=== PATIENT | male | born 1935 | race Caucasian/White ===

== ENCOUNTER 2017-06-09 10:33 | Outpatient (CLI) | payer MEDICARE, OTHER ==
--- NOTE | 2017-06-09 12:02 | RAD ---
PA AND LATERAL VIEWS OF THE CHEST: HISTORY: Dyspnea. COMPARISON: 06/09/2016 FINDINGS: Changes of COPD, bibasilar atelectasis versus scarring, and postop changes in the lower cervical spin e are again seen. The heart size is borderline but stable. The aorta is tortuous. No lobar consoli dation, pneumothoraces, or pleural effusions are seen. There are degenerative changes in the spine. IMPRESSION: Stable exam. POS: [facility]
== END 2017-06-09 10:34 | disposition home or self-care (01) ==
LOC: RAD 10:33
PROVIDERS: ATTEND Internal Medicine Critical Care Medicine
DX: R06.00 Dyspnea, unspecified (principal)
CPT/HCPCS: 71046

== ENCOUNTER 2017-06-10 10:42 | Outpatient (CLI) | payer MEDICARE, OTHER ==
[2017-06-10] MEDS ORDERED: Iopamidol 370 76% 100 ML VIAL ONE (16:54)
== END 2017-06-10 10:43 | disposition home or self-care (01) ==
LOC: BICCT 10:42
PROVIDERS: ATTEND Internal Medicine Gastroenterology
DX: K57.30 Diverticulosis of large intestine without perforation or abscess without bleeding (principal); R10.9 Unspecified abdominal pain; R19.4 Change in bowel habit; N28.1 Cyst of kidney, acquired; K44.9 Diaphragmatic hernia without obstruction or gangrene; Z86.010 Personal history of colon polyps
CPT/HCPCS: 74177

== ENCOUNTER 2018-04-12 11:18 | Outpatient (CLI) | payer MEDICARE, OTHER ==
[2018-04-12 13:10] LABS: Anion Gap 13 mmol/L (10-20); BUN (Urea Nitrogen) 25 mg/dL (8.4-25.7); Calc. Creatinine Clearance 0 mL/min (70-130); Calcium 9.5 mg/dL (7.8-10.44); Carbon Dioxide 25 mmol/L (23-31); Chloride 103 mmol/L (98-107); Estimated GFR-MDRD 57; Glucose 106 mg/dL (83-110); Potassium 3.9 mmol/L (3.5-5.1); Sodium 137 mmol/L (136-145)
[2018-04-12 17:24] LABS: #Eosinphils 0.4 thou/uL (0.0-0.7); #Monocytes 0.5 thou/uL (0.11-0.59); #Neutrophils 3.8 thou/uL (1.40-6.50); %Basophils 0.8 % (0.0-1.0); %Eosinophils 6.6 % (0.0-10.0); %Lymphocytes 17.1 % (21.0-51.0); %Monocytes 8.7 % (0.0-10.0); %Neutrophils 66.7 % (42.0-75.0); Hemoglobin 12.6 g/dL (14.0-18.0); Mean Corpuscular HGB CONC 33.5 g/dL (32.0-36.0); Mean Corpuscular Hemoglobin 32.8 pg (27.0-31.0); Mean Platelet Volume 7.7 fL (7.4-10.4); Platelet Count 242 thou/uL (130-400); RBC Distribution Width 11.7 % (11.5-14.5); Red Blood Cell (RBC) Count 3.84 mill/uL (4.70-6.10); White Blood Cell (WBC) Count 5.7 thou/uL (4.8-10.8)
== END 2018-04-12 11:19 | disposition home or self-care (01) ==
LOC: LABBT 11:18
PROVIDERS: ATTEND Orthopaedic Surgery Hand Surgery
DX: Z01.818 Encounter for other preprocedural examination (principal); G56.02 Carpal tunnel syndrome, left upper limb
CPT/HCPCS: 80048; 85025; 85652; 93005; 93010

== ENCOUNTER 2018-04-23 07:24 | Day surgery (SDC) | payer MEDICARE, OTHER ==
[2018-04-12 11:41] VITALS: BMI 24.7
[~2018-04-23 07:24] MED LIST: Propofol 500 MG/50 ML VIAL ONE
[2018-04-23] MEDS ORDERED: CEFAZOLIN 2 GM/50 ML BAG ONE (08:17)
[2018-04-23] MEDS ORDERED: Midazolam HCl 2 mg/2 ml Vial ONE (09:12)
[2018-04-23] MEDS ORDERED: Fentanyl 100 MCG/2 ML VIAL ONE (09:12)
[2018-04-23] MEDS ORDERED: Bupivacaine PF 0.5% 30 ML VIAL ONE (09:17)
[2018-04-23] MEDS ORDERED: Betamet Acet/Betamet Na Ph 30 MG/5 ML VIAL ONE (09:17)
[2018-04-23] MEDS ORDERED: Bacitracin Zinc Ointment 30 gm TUBE ONE (09:17)
[2018-04-23] MEDS ORDERED: Dexamethasone 20 MG/5 ML VIAL ONE (20:45)
[2018-04-23] MEDS ORDERED: Ondansetron PF 4 MG/2 ML Vial ONE (20:45)
[2018-04-23] MEDS ORDERED: Ketorolac Tromethamine 30 MG/ML VIAL ONE (20:45)
[2018-04-23] MEDS ORDERED: Lidocaine 1% PF 5 ML VIAL ONE (20:45)
--- NOTE | 2018-04-25 01:27 | OP ---
DATE OF PROCEDURE: 04/23/2018 PREOPERATIVE DIAGNOSIS: Left carpal tunnel syndrome. POSTOPERATIVE DIAGNOSIS: Left carpal tunnel syndrome. FINDINGS: Very tight transverse carpal ligament especially in the mid distal third over the median nerve. COMPLICATIONS: None. TOURNIQUET TIME: 17 minutes. ESTIMATED BLOOD LOSS: 10 mL. ANESTHESIA: Conscious sedation with propofol and 20 mL of 0.5% Marcaine block, 15 given before the procedure, 5 after . DESCRIPTION OF PROCEDURE: After successful anesthesia listed above, and after we removed the patient's ring before we prepped and draped, the limb was prepped and draped. The ring was given to the patient's personally by me in the waiting area. The patient then had the limb exsanguinated after a time-out was done and the anesthetic was allowed to become active with no complications. Tourniquet to 250 mmHg pressure. We then made outlined a 2.5 cm medial incision beginning 5 mm distal to the volar wrist flexion crease and in line with the palmaris longus tendon. We carried the incision through skin, subcutaneous tissue, and to identify transverse carpal ligament, entering it just ulnar to the palmaris longus. We then dissected from the midportion distally using a combination of [place] blade and tenotomy scissors. We released the ligament and there was no evidence of mass. We then dissected the subcutaneous tissue to separate from transcarpal ligament and using a combination of self retaining elevated the skin, so we had direct visualization of the entire remaining portion of the transverse carpal ligament, released it using again a combination of [place] blade and tenotomy scissors. We deflated the tourniquet and obtained hemostasis. We then put 3 mL Celestone over the median nerve area, where there was no allograft formation, but early stippling was seen. There was not an increased amount of tenosynovitis on the flexor tendons. Once hemostasis obtained, we then closed the skin with interrupted 4-0 nylon mattress pattern. Bulky dressing was applied. Job ID: [id number]
--- NOTE | 2018-04-25 01:27 | OP ---
DATE OF PROCEDURE: 04/23/2018 ANESTHESIA: general via conscious sedation augmented by 20 mL of 0.5% Marcaine block at previous incision. PREOPERATIVE DIAGNOSIS: Left carpal tunnel syndrome. POSTOPERATIVE DIAGNOSIS: Left carpal tunnel syndrome. FINDINGS: Very tight transcarpal ligament with early stippling, no allograft formation, median nerve. PROCEDURE PERFORMED: Left carpal tunnel release. SPECIMEN: None. TOURNIQUET TIME: 17 minutes. ESTIMATED BLOOD LOSS: 10 mL. INJECTABLE: With Marcaine listed above as well as Celestone drip over the nerve 3 mL. INDICATIONS FOR PROCEDURE: Failed conservative treatment with EMG and clinical findings consistent with carpal tunnel syndrome. DESCRIPTION OF PROCEDURE: After given the medication, and removing the ring on the patient and given the ring by Dr. Ramos directly to his , the limb was prepped and draped and the time-out was completed. We then exsanguinated the limb, inflated tourniquet to 250 mmHg pressure, outlined a 2.5-cm mini carpal tunnel incision beginning distal to the volar wrist flexion crease by 5-mm and Piper's cardinal line in line with the palmaris longus tendon, ulnar aspect. We carried incision through skin, subcutaneous tissue, identified the transcarpal ligament. We then retracted distally with a self-retaining , exposed the transcarpal ligament and from its midportion, distal release done under direct visualization using a combination of [place] blade, tenotomy scissors. There was no excessive tenosynovitis of flexor tendons. We then , freed the skin and subcutaneous tissue from the transcarpal ligament. I used the direct visualization to visualize transcarpal ligament and released it from the midportion proximally using the same combination of instruments. We placed Celestone over the stippling without allograft formation and there was no excessive tenosynovitis. The tourniquet was deflated. Hemostasis was obtained. We closed the incision with interrupted 4-0 nylon in a mattress pattern after placing 3 mL of Celestone on the nerve. Bulky dressing was applied, soft only. The patient left the operating room without evidence of anesthetic or operative complication. Job ID: [id number]
== END 2018-04-23 12:15 | disposition home or self-care (01) ==
LOC: SDC 07:24
PROVIDERS: ATTEND Orthopaedic Surgery Hand Surgery
PROC: 01N50ZZ Release Median Nerve, Open Approach (ICD-10-PCS; principal; 2018-04-23)
DX: G56.02 Carpal tunnel syndrome, left upper limb (principal); I10 Essential (primary) hypertension; J45.909 Unspecified asthma, uncomplicated; M19.039 Primary osteoarthritis, unspecified wrist; Z98.52 Vasectomy status; Z79.82 Long term (current) use of aspirin; Z79.899 Other long term (current) drug therapy; Z98.890 Other specified postprocedural states
CPT/HCPCS: J0131; J0702; J1100; J1885; J2001; J2250; J2405; J2704; J3010; S0020

== ENCOUNTER 2018-07-27 09:24 | Outpatient (CLI) | payer MEDICARE, BC ==
--- NOTE | 2018-07-27 09:42 | RAD ---
FExam: Chest 2 view HISTORY:Dyspnea Comparison: 06/09/2017 FINDINGS: Lungs: Hyperinflated. Patchy left basilar opacity and minimal right lateral basilar density present Cardiac silhouette:Stable Pulmonary vessels: Normal Pleural Spaces: Clear Pneumothorax: None Osseous abnormalities: Surgical changes of the lower cervical spine IMPRESSION: COPD Bibasilar densities, left greater than right, which could relate to atelectasis, scar or pneumonitis.
== END 2018-07-27 09:25 | disposition home or self-care (01) ==
LOC: RAD 09:24
PROVIDERS: ATTEND Internal Medicine Critical Care Medicine
DX: R06.00 Dyspnea, unspecified (principal); J44.9 Chronic obstructive pulmonary disease, unspecified
CPT/HCPCS: 71046

== ENCOUNTER 2018-08-05 14:26 | Outpatient (CLI) | payer MEDICARE, BC ==
--- NOTE | 2018-08-05 16:37 | CT ---
CT Abdomen Pelvis W Con: 08/05/2018 12:00 AM CLINICAL INFORMATION: Central abdominal pain. History of diverticular disease. History of prostate ca ncer. COMPARISON: 06/10/2017 Procedure: Multiple contiguous axial images were obtained and a CT of the abdomen and pelvis with IV contrast.Or al contrast was administered. Coronal reformats were performed. FINDINGS: Lower Chest: within normal limits. Abdomen: Liver: within normal limits. Bile Ducts: Normal caliber. Gallbladder: No calcified gallstones. Normal caliber wall. Pancreas: within normal limits. Spleen: within normal limits. Adrenals: within normal limits. Kidneys: There are hypodensities in the right kidney measuring up to 4.7 cm in size which represents cysts. No abnormality seen in the left kidney. Pelvis: Reproductive Organs: Brachytherapy seeds are seen within the prostate. Ureters: within normal limits. Bladder: within normal limits. Peritoneum: No ascites or free air, no fluid collection. Bowel: Normal caliber. The appendix is normal. Scattered diverticula are seen in the colon. Mesentery and Retroperitoneum: No enlarged mesenteric or retroperitoneal lymph nodes. Vessels: Atherosclerotic calcifications. Abdominal Wall: within normal limits. Bones: Degenerative changes are seen in the spine. IMPRESSION: 1. No evidence of acute intraabdominal\pelvic abnormality. 2. Right renal cysts 3. Diverticulosis without evidence of acute diverticulitis
== END 2018-08-05 14:27 | disposition home or self-care (01) ==
LOC: BICCT 14:26
PROVIDERS: ATTEND Internal Medicine Gastroenterology
DX: K57.30 Diverticulosis of large intestine without perforation or abscess without bleeding (principal); R10.33 Periumbilical pain; N28.1 Cyst of kidney, acquired
CPT/HCPCS: 74177

== ENCOUNTER 2019-07-15 12:20 | Outpatient (CLI) | payer MEDICARE, BC ==
--- NOTE | 2019-07-15 15:34 | NM ---
HEPATOBILIARY SCAN: HISTORY: Chronic abdominal pain. RADIOPHARMACEUTICAL: 5.3 mCi technetium 99m-mebrofenin injected intravenously. FINDINGS: There is good tracer extraction by the liver with prompt excretion into the biliary tract and small b owel loops and filling of the gallbladder. The calculated gallbladder ejection fraction following an oral fatty meal measures 28%. IMPRESSION: Chronic cholecystitis/gallbladder dyskinesia. POS: [facility]
== END 2019-07-15 12:21 | disposition home or self-care (01) ==
LOC: NM 12:20
PROVIDERS: ATTEND Internal Medicine Gastroenterology
DX: R10.9 Unspecified abdominal pain (principal); G89.29 Other chronic pain
CPT/HCPCS: 78227; A9537

== ENCOUNTER 2019-09-08 07:58 | Outpatient (CLI) | payer MEDICARE, BC ==
--- NOTE | 2019-09-08 09:24 | ULT ---
GALLBLADDER ULTRASOUND: HISTORY: Abdominal pain. FINDINGS: Real-time imaging of the right upper quadrant was performed. These showed some small echogenic densi ties along the gallbladder wall which do not show any shadowing. One of these shows some ring down a rtifact. These probably represent small polyps and may be indication of adenomyomatosis. No gallsto courtney. The common duct is in the 5-6 mm range. The visualized liver parenchyma shows no focal finding s. The pancreas is partially obscured. Multiple cysts are seen in the lower pole regio of the right kidney. There is a cluster of cysts or 1 cyst with some thin internal septations associated with it. A second cyst which appears to be miguel cent to this one is the largest. It measures in the 4.5 cm range. IMPRESSION: 1. Small polyps within the gallbladder measuring in the 2-3 mm range. No gallstones identified and no gallbladder wall thickening. 2. Multiple right renal cysts. This has been noted on previous CT studies. POS: [facility]
== END 2019-09-08 07:59 | disposition home or self-care (01) ==
LOC: BICULT 07:58
PROVIDERS: ATTEND Specialist
DX: R10.13 Epigastric pain (principal); K82.4 Cholesterolosis of gallbladder; N28.1 Cyst of kidney, acquired
CPT/HCPCS: 76705

== ENCOUNTER 2020-09-06 08:53 | Outpatient (CLI) | payer MEDICARE, BC | END 2020-09-06 08:54 | disposition home or self-care (01) | LOC: BICRAD 08:53 | PROVIDERS: ATTEND Internal Medicine Critical Care Medicine | DX: R06.00 Dyspnea, unspecified (principal) | CPT/HCPCS: 71046 ==

== ENCOUNTER 2021-09-24 09:40 | Outpatient (CLI) | payer MEDICARE, BC | END 2021-09-24 09:41 | disposition home or self-care (01) | LOC: RAD 09:40 | PROVIDERS: ATTEND Internal Medicine Critical Care Medicine | DX: R06.00 Dyspnea, unspecified (principal); J98.11 Atelectasis; R91.8 Other nonspecific abnormal finding of lung field | CPT/HCPCS: 71046 ==

== ENCOUNTER 2022-03-06 08:59 | Outpatient (CLI) | payer MEDICARE, BC | END 2022-03-06 09:00 | disposition home or self-care (01) | LOC: RAD 08:59 | PROVIDERS: ATTEND Internal Medicine Critical Care Medicine | DX: R06.00 Dyspnea, unspecified (principal) | CPT/HCPCS: 71046 ==

== ENCOUNTER 2022-04-29 01:05 | Inpatient (IN) | payer MEDICARE, BC ==
[2022-04-29 02:30] VITALS: BMI 22.0
[2022-04-29] MEDS ORDERED: Ondansetron PF 4 MG/2 ML Vial IVP PRN (06:16)
[2022-04-29] MEDS ORDERED: Acetaminophen 650 MG Suppository PR PRN (06:16)
[2022-04-29] MEDS ORDERED: Ondansetron ODT 4 MG TAB PO PRN (06:16)
[2022-04-29 07:35] LABS: Iron 20 ug/dL (65-175); Iron Binding Capacity, Total 178 mcg/dL (261-462)
[2022-04-29 07:36] LABS: Troponin I 0.149 ng/mL (< 0.028)
[2022-04-29 10:22] LABS: Hemoglobin 8.6 g/dL (14.0-18.0); Mean Corpuscular HGB CONC 33.7 g/dL (32.0-36.0); Mean Corpuscular Hemoglobin 33.6 pg (27.0-31.0); Mean Corpuscular Volume 99.8 fl (78.0-98.0); Mean Platelet Volume 9.3 fL (7.4-10.4); Platelet Count 237 10x3/uL (130-400); RBC Distribution Width 12.5 % (11.5-14.5); Red Blood Cell (RBC) Count 2.55 mill/uL (4.70-6.10); White Blood Cell (WBC) Count 8.1 10x3/uL (4.8-10.8)
[2022-04-29] MEDS: Pantoprazole 40 MG VIAL IVP SCH ×2 (10:27→20:54)
[2022-04-29] MEDS: Sodium Chloride 0.9% 1,000 ML IV SCH (17:15)
[2022-04-29] MEDS: Mometasone 200 MCG/Formoterol 5 MCG 120 PUFF INHALER INH SCH (18:52)
[2022-04-29] MEDS: Tamsulosin HCl 0.4 MG CAP PO SCH (20:54)
[2022-04-29] MEDS: Simvastatin 10 MG TAB PO SCH (20:54)
[2022-04-30] MEDS: Sodium Chloride 0.9% 1,000 ML IV SCH ×2 (06:35→18:01)
[2022-04-30] MEDS: Mometasone 200 MCG/Formoterol 5 MCG 120 PUFF INHALER INH SCH ×2 (07:14→17:48)
[2022-04-30 07:26] LABS: #Eosinphils 0.2 thou/uL (0.0-0.7); #Lymphocytes 0.7 thou/uL (1.20-3.40); #Monocytes 0.7 thou/uL (0.11-0.59); #Neutrophils 6.4 thou/uL (1.40-6.50); %Eosinophils 2.1 % (0.0-10.0); %Lymphocytes 9.3 % (21.0-51.0); %Monocytes 8.3 % (0.0-10.0); %Neutrophils 80.3 % (42.0-75.0); Hemoglobin 8.5 g/dL (14.0-18.0); Mean Corpuscular HGB CONC 33.5 g/dL (32.0-36.0); Mean Corpuscular Hemoglobin 33.6 pg (27.0-31.0); Mean Platelet Volume 8.8 fL (7.4-10.4); Platelet Count 249 10x3/uL (130-400); RBC Distribution Width 12.6 % (11.5-14.5); Red Blood Cell (RBC) Count 2.53 mill/uL (4.70-6.10)
[2022-04-30 07:55] LABS: Anion Gap 11 mmol/L (10-20); BUN (Urea Nitrogen) 15 mg/dL (8.4-25.7); Calc. Creatinine Clearance 48 mL/min (70-130); Calcium 8.2 mg/dL (7.8-10.44); Carbon Dioxide 19 mmol/L (23-31); Chloride 105 mmol/L (98-107); Estimated GFR 54; Glucose 96 mg/dL (83-110); Potassium 3.8 mmol/L (3.5-5.1); Sodium 131 mmol/L (136-145)
[2022-04-30] MEDS ORDERED: Non-Formulary Item 1 EACH (Nifedipine [Nifedipine Er] 30 MG Tablet.Er) PO SCH (09:00)
[2022-04-30] MEDS ORDERED: Non-Formulary Item 1 EACH (Symbicort 2 PUFF) INH SCH (09:00)
[2022-04-30] MEDS ORDERED: Lidocaine 1% PF 5 ML VIAL ONE (09:05)
[2022-04-30] MEDS ORDERED: PROPOFOL 200 MG/20 ML VIAL ONE (09:05)
[2022-04-30] MEDS: Pantoprazole 40 MG VIAL IVP SCH (10:13)
[2022-04-30] MEDS: Aspirin 81 mg Enteric Coated Tablet PO SCH (10:16)
[2022-04-30] MEDS: NIFEdipine XL 30 MG TAB PO SCH (10:16)
[2022-04-30] MEDS ORDERED: GoLYTELY 4,000 ml Bottle PO SCH (17:00)
[2022-04-30] MEDS: Simvastatin 10 MG TAB PO SCH (19:45)
[2022-04-30] MEDS: Tamsulosin HCl 0.4 MG CAP PO SCH (19:45)
[2022-05-01 06:32] LABS: Hemoglobin 7.5 g/dL (14.0-18.0); Mean Corpuscular Hemoglobin 34.7 pg (27.0-31.0); Mean Corpuscular Volume 99.1 fl (78.0-98.0); Mean Platelet Volume 8.6 fL (7.4-10.4); Platelet Count 232 10x3/uL (130-400); RBC Distribution Width 12.2 % (11.5-14.5); Red Blood Cell (RBC) Count 2.17 mill/uL (4.70-6.10); White Blood Cell (WBC) Count 7.4 10x3/uL (4.8-10.8)
[2022-05-01] MEDS: Mometasone 200 MCG/Formoterol 5 MCG 120 PUFF INHALER INH SCH ×2 (07:20→18:33)
[2022-05-01] MEDS: Aspirin 81 mg Enteric Coated Tablet PO SCH (08:55)
[2022-05-01] MEDS: NIFEdipine XL 30 MG TAB PO SCH (08:55)
[2022-05-01] MEDS: Sodium Chloride 0.9% 1,000 ML IV SCH ×2 (08:56→20:33)
[2022-05-01] MEDS ORDERED: ePHEDrine 50 MG/ML VIAL ONE (11:56)
[2022-05-01] MEDS ORDERED: PROPOFOL 200 MG/20 ML VIAL ONE (11:56)
[2022-05-01] MEDS: Tamsulosin HCl 0.4 MG CAP PO SCH (20:24)
[2022-05-01] MEDS: Simvastatin 10 MG TAB PO SCH (20:24)
[2022-05-02] MEDS ORDERED: Benzonatate 100 MG CAP PO PRN (00:08)
[2022-05-02] MEDS: GUAIFENESIN SF SOLN 200 MG/10 ML UDCUP PO PRN ×2 (00:31→16:40)
[2022-05-02] MEDS: Acetaminophen 325 MG TAB PO PRN (04:07)
[2022-05-02] MEDS ORDERED: Ipratropium/Albuterol 3 ML NEB NEB SCH (04:30)
[2022-05-02 05:48] LABS: #Eosinphils 0.1 thou/uL (0.0-0.7); #Lymphocytes 0.6 thou/uL (1.20-3.40); #Monocytes 0.7 thou/uL (0.11-0.59); #Neutrophils 8.1 thou/uL (1.40-6.50); %Basophils 0.2 % (0.0-1.0); %Eosinophils 1.2 % (0.0-10.0); %Lymphocytes 6.6 % (21.0-51.0); %Monocytes 6.9 % (0.0-10.0); %Neutrophils 85.1 % (42.0-75.0); Hemoglobin 8.6 g/dL (14.0-18.0); Mean Corpuscular HGB CONC 32.9 g/dL (32.0-36.0); Mean Corpuscular Hemoglobin 32.4 pg (27.0-31.0); Mean Corpuscular Volume 98.4 fl (78.0-98.0); Mean Platelet Volume 9.1 fL (7.4-10.4); Platelet Count 226 10x3/uL (130-400); RBC Distribution Width 13.4 % (11.5-14.5); Red Blood Cell (RBC) Count 2.67 mill/uL (4.70-6.10); White Blood Cell (WBC) Count 9.5 10x3/uL (4.8-10.8)
[2022-05-02 05:49] LABS: SARS-CoV-2 NAA Rapid Test Not Detected (NotDetected)
[2022-05-02 06:04] LABS: Lactic Acid 0.7 mmol/L (0.5-2.2)
[2022-05-02 06:07] LABS: Anion Gap 11 mmol/L (10-20); BUN (Urea Nitrogen) 14 mg/dL (8.4-25.7); Calc. Creatinine Clearance 47 mL/min (70-130); Calcium 7.8 mg/dL (7.8-10.44); Carbon Dioxide 18 mmol/L (23-31); Chloride 105 mmol/L (98-107); Estimated GFR 53; Glucose 113 mg/dL (83-110); Potassium 3.5 mmol/L (3.5-5.1); Sodium 130 mmol/L (136-145)
[2022-05-02] MEDS: Mometasone 200 MCG/Formoterol 5 MCG 120 PUFF INHALER INH SCH ×2 (07:16→18:38)
[2022-05-02] MEDS: Aspirin 81 mg Enteric Coated Tablet PO SCH (08:19)
[2022-05-02] MEDS: NIFEdipine XL 30 MG TAB PO SCH (08:19)
[2022-05-02] MEDS ORDERED: Amoxicillin/Potassium Clav 875 MG TAB PO SCH (11:15)
[2022-05-02] MEDS: Sodium Chloride 0.9% 1,000 ML IV SCH (12:28)
[2022-05-02] MEDS ORDERED: Piperacillin/Tazobactam 4.5 GM in Sodium Chloride 0.9% 100 ML IVPB SCH (14:00)
[2022-05-02] MEDS ORDERED: Piperacillin/Tazobactam 3.375 GM in Sodium Chloride 0.9% 100 ML IVPB SCH (14:00)
[2022-05-02] MEDS: Piperacillin/Tazobactam 3.375 GM in Sodium Chloride 0.9% 100 ML IVPB SCH (21:07)
[2022-05-02] MEDS: Tamsulosin HCl 0.4 MG CAP PO SCH (21:07)
[2022-05-02] MEDS: Simvastatin 10 MG TAB PO SCH (21:07)
[2022-05-03] MEDS: Piperacillin/Tazobactam 3.375 GM in Sodium Chloride 0.9% 100 ML IVPB SCH ×3 (06:40→21:10)
[2022-05-03] MEDS: Mometasone 200 MCG/Formoterol 5 MCG 120 PUFF INHALER INH SCH ×2 (07:26→19:14)
[2022-05-03] MEDS: Aspirin 81 mg Enteric Coated Tablet PO SCH (08:39)
[2022-05-03] MEDS: Ferrous Sulfate 325 MG TAB PO SCH (08:39)
[2022-05-03] MEDS: NIFEdipine XL 30 MG TAB PO SCH (08:39)
[2022-05-03 10:41] LABS: #Eosinphils 0.2 thou/uL (0.0-0.7); #Lymphocytes 0.7 thou/uL (1.20-3.40); #Monocytes 0.4 thou/uL (0.11-0.59); #Neutrophils 4.3 thou/uL (1.40-6.50); %Basophils 0.3 % (0.0-1.0); %Eosinophils 2.9 % (0.0-10.0); %Monocytes 7.4 % (0.0-10.0); %Neutrophils 76.4 % (42.0-75.0); Hemoglobin 9.2 g/dL (14.0-18.0); Mean Corpuscular HGB CONC 33.2 g/dL (32.0-36.0); Mean Corpuscular Hemoglobin 32.7 pg (27.0-31.0); Mean Corpuscular Volume 98.5 fl (78.0-98.0); Mean Platelet Volume 9.1 fL (7.4-10.4); Platelet Count 234 10x3/uL (130-400); RBC Distribution Width 13.6 % (11.5-14.5); White Blood Cell (WBC) Count 5.7 10x3/uL (4.8-10.8)
[2022-05-03 10:51] LABS: Anion Gap 8 mmol/L (10-20); BUN (Urea Nitrogen) 17 mg/dL (8.4-25.7); Calc. Creatinine Clearance 49 mL/min (70-130); Calcium 8.3 mg/dL (7.8-10.44); Carbon Dioxide 20 mmol/L (23-31); Chloride 109 mmol/L (98-107); Estimated GFR 56; Glucose 149 mg/dL (83-110); Potassium 3.4 mmol/L (3.5-5.1); Sodium 134 mmol/L (136-145)
[2022-05-03] MEDS: Simvastatin 10 MG TAB PO SCH (20:11)
[2022-05-03] MEDS: Tamsulosin HCl 0.4 MG CAP PO SCH (20:11)
[2022-05-04] MEDS: Piperacillin/Tazobactam 3.375 GM in Sodium Chloride 0.9% 100 ML IVPB SCH ×3 (05:39→21:58)
[2022-05-04 07:38] LABS: #Eosinphils 0.4 thou/uL (0.0-0.7); #Lymphocytes 0.9 thou/uL (1.20-3.40); #Monocytes 0.4 thou/uL (0.11-0.59); #Neutrophils 3.7 thou/uL (1.40-6.50); %Basophils 0.6 % (0.0-1.0); %Eosinophils 7.7 % (0.0-10.0); %Lymphocytes 16.1 % (21.0-51.0); %Monocytes 7.1 % (0.0-10.0); %Neutrophils 68.5 % (42.0-75.0); Hemoglobin 9.3 g/dL (14.0-18.0); Mean Corpuscular HGB CONC 34.1 g/dL (32.0-36.0); Mean Corpuscular Hemoglobin 33.7 pg (27.0-31.0); Mean Corpuscular Volume 98.7 fl (78.0-98.0); Mean Platelet Volume 8.7 fL (7.4-10.4); Platelet Count 273 10x3/uL (130-400); RBC Distribution Width 13.5 % (11.5-14.5); Red Blood Cell (RBC) Count 2.77 mill/uL (4.70-6.10); White Blood Cell (WBC) Count 5.3 10x3/uL (4.8-10.8)
[2022-05-04 08:07] LABS: Anion Gap 11 mmol/L (10-20); BUN (Urea Nitrogen) 18 mg/dL (8.4-25.7); Calc. Creatinine Clearance 44 mL/min (70-130); Calcium 8.2 mg/dL (7.8-10.44); Carbon Dioxide 19 mmol/L (23-31); Chloride 109 mmol/L (98-107); Estimated GFR 49; Glucose 102 mg/dL (83-110); Potassium 3.8 mmol/L (3.5-5.1); Sodium 135 mmol/L (136-145)
[2022-05-04] MEDS: Mometasone 200 MCG/Formoterol 5 MCG 120 PUFF INHALER INH SCH ×2 (08:19→18:24)
[2022-05-04] MEDS: NIFEdipine XL 30 MG TAB PO SCH (08:54)
[2022-05-04] MEDS: Aspirin 81 mg Enteric Coated Tablet PO SCH (08:54)
[2022-05-04] MEDS: Ferrous Sulfate 325 MG TAB PO SCH (08:54)
[2022-05-04] MEDS: Simvastatin 10 MG TAB PO SCH (20:18)
[2022-05-04] MEDS: Tamsulosin HCl 0.4 MG CAP PO SCH (20:18)
[2022-05-05] MEDS: Acetaminophen 325 MG TAB PO PRN (01:02)
[2022-05-05] MEDS: Piperacillin/Tazobactam 3.375 GM in Sodium Chloride 0.9% 100 ML IVPB SCH (05:49)
[2022-05-05] MEDS: Mometasone 200 MCG/Formoterol 5 MCG 120 PUFF INHALER INH SCH (07:45)
[2022-05-05 08:18] VITALS: TEMP 97.5
[2022-05-05] MEDS: Ferrous Sulfate 325 MG TAB PO SCH (08:33)
[2022-05-05] MEDS: NIFEdipine XL 30 MG TAB PO SCH (08:34)
[2022-05-05] MEDS: Aspirin 81 mg Enteric Coated Tablet PO SCH (08:34)
[2022-05-05] MEDS ORDERED: Amoxicillin/Potassium Clav 875 MG TAB PO SCH (09:00)
[2022-05-05 11:28] VITALS: BP 136/48
== END 2022-05-05 11:47 | disposition home or self-care (01) | DRG 377 ==
LOC: T4-B 02:24
PROVIDERS: ADMIT Student in an Organized Health Care Education/Training Program; ATTEND Internal Medicine
PROC: 0DJ08ZZ Inspection of Upper Intestinal Tract, Via Natural or Artificial Opening Endoscopic (ICD-10-PCS; principal; 2022-04-30)
PROC: 0DBK8ZZ Excision of Ascending Colon, Via Natural or Artificial Opening Endoscopic (ICD-10-PCS; 2022-05-01)
PROC: 0DBL8ZZ Excision of Transverse Colon, Via Natural or Artificial Opening Endoscopic (ICD-10-PCS; 2022-05-01)
PROC: 0DBM8ZZ Excision of Descending Colon, Via Natural or Artificial Opening Endoscopic (ICD-10-PCS; 2022-05-01)
PROC: 30233N1 Transfusion of Nonautologous Red Blood Cells into Peripheral Vein, Percutaneous Approach (ICD-10-PCS; 2022-05-01)
DX: K92.1 Melena (principal); J69.0 Pneumonitis due to inhalation of food and vomit; D68.32 Hemorrhagic disorder due to extrinsic circulating anticoagulants; D62 Acute posthemorrhagic anemia; D12.2 Benign neoplasm of ascending colon; I10 Essential (primary) hypertension; E78.5 Hyperlipidemia, unspecified; N40.0 Benign prostatic hyperplasia without lower urinary tract symptoms; I51.7 Cardiomegaly; J44.9 Chronic obstructive pulmonary disease, unspecified; D63.8 Anemia in other chronic diseases classified elsewhere; I48.0 Paroxysmal atrial fibrillation; D12.3 Benign neoplasm of transverse colon; K57.30 Diverticulosis of large intestine without perforation or abscess without bleeding; T45.525A Adverse effect of antithrombotic drugs, initial encounter; D12.4 Benign neoplasm of descending colon; K44.9 Diaphragmatic hernia without obstruction or gangrene; Z20.822 Contact with and (suspected) exposure to COVID-19; Z79.899 Other long term (current) drug therapy; Z95.2 Presence of prosthetic heart valve; Z98.890 Other specified postprocedural states; Z98.1 Arthrodesis status; Z86.16 Personal history of COVID-19; Z79.82 Long term (current) use of aspirin
CPT/HCPCS: 36415; 36430; 71045; 80048; 82607; 82728; 83540; 83550; 83605; 84484; 85025; 85027; 86850; 86900; 86901; 88305; 94640; C9113; J2543; J2704; J3490; J7050; J7620; P9016; U0003; U0005

== ENCOUNTER 2022-12-16 09:03 | Outpatient (CLI) | payer MEDICARE, BC | END 2022-12-16 09:04 | disposition home or self-care (01) | LOC: RAD 09:03 | PROVIDERS: ATTEND Internal Medicine Critical Care Medicine | DX: R06.00 Dyspnea, unspecified (principal) | CPT/HCPCS: 71046 ==

== ENCOUNTER 2023-12-16 12:39 | Inpatient (IN) | payer MEDICARE ==
[~2023-12-16 12:39] MED LIST changes: +Iopamidol-370 76% 500 ML MDV (1 ML CHARGE) ONE; -Propofol 500 MG/50 ML VIAL ONE
[2023-12-16] MEDS ORDERED: niCARdipine 25 MG/10 ML SDV ONE (12:47)
[2023-12-16 13:10] LABS: #Basophils 0.03 10x3/uL (0.0-0.2); %Basophils 0.4 % (0.0-1.0); %Eosinophils 4.6 % (0.0-10.0); %Lymphocytes 7.7 % (21.0-51.0); %Monocytes 5.6 % (0.0-10.0); %Neutrophils 81.3 % (42.0-75.0); Hematocrit 35.7 % (42.0-52.0); Hemoglobin 11.9 g/dL (14.0-18.0); Mean Corpuscular HGB CONC 33.3 g/dL (32.0-36.0); Mean Corpuscular Hemoglobin 33.1 pg (27.0-31.0); Mean Corpuscular Volume 99.2 fL (78.0-98.0); Mean Platelet Volume 10.2 fL (7.4-10.4); Platelet Count 155 10x3/uL (130-400); RBC Distribution Width 13.4 % (11.5-14.5)
[2023-12-16] MEDS ORDERED: Fentanyl CADD 100 ML IV SCH (13:15)
[2023-12-16] MEDS ORDERED: niCARdipine 25 MG in Sodium Chloride 0.9% 250 ML 250 ML IVPB SCH (13:15)
[2023-12-16 13:20] LABS: Bacteria/HPF None Seen HPF (None Seen); Bilirubin Negative (Negative); Blood, Urine 2+ (Negative); CAUTI Indications for Culture Alt mental st,lethar; Clarity Clear (Clear); Glucose, Urine (Dipstick) Greater than 1000 mg/dL (Negative); Ketone, Urine Negative (Negative); Leukocyte Negative Leu/uL (Negative); Nitrite Negative (Negative); Protein, Urine (Dipstick) 100 mg/dL (Neg-Trace); RBC/HPF 0-3 HPF (0-3); Specific Gravity, Urine 1.018 (1.002-1.036); Squamous Epithelial None Seen HPF (0-3); Urobilinogen Normal mg/dL (Less than 2); WBC/HPF 0-3 HPF (0-3); pH, Urine 6.5 (5.0-9.0)
[2023-12-16 13:20] LABS: Actual Bicarbonate (HCO3a) 21.2 mEq/L (22-28); Analyzer IN Cardio ER; Base Excess (BEa) -3.4 mEq/L (-2.0 to +3.0); CO2 Tension 36.5 mmHg (35.0-45.0); Calcium, Ionized (arterial) 1.18 mmol/L (1.12-1.30); Carboxyhemoglobin (COHb) 0.5 gm% (0.0-3.0); Hematocrit-ABG 37 % (42.0-52.0); Hemoglobin (Hb) 12.5 g/dL (14.0-18.0); O2 Tension (PaO2), arterial 74.5 mmHg (> 60.0); Potassium - ABG Lab 4.01 mmol/L (3.70-5.30); pH, Arterial 7.381 (7.35-7.45)
[2023-12-16 13:22] LABS: INR-International Normal Ratio 1.2; Prothrombin Time 15.4 sec (12.0-14.7)
[2023-12-16 13:23] LABS: PTT 28.5 sec (22.9-36.1)
[2023-12-16 13:24] LABS: Urine Culture Reflex No No
[2023-12-16 13:34] LABS: ALT (SGPT) 13 U/L (8-55); AST (SGOT) 21 U/L (5-34); Albumin 3.3 g/dL (3.4-4.8); Alkaline Phosphatase 70 U/L (40-110); Anion Gap 11 mmol/L (10-20); BUN (Urea Nitrogen) 26 mg/dL (8.4-25.7); Bilirubin, Total 1.3 mg/dL (0.2-1.2); Calc. Creatinine Clearance 0 mL/min (70-130); Calcium 8.4 mg/dL (7.8-10.44); Carbon Dioxide 22 mmol/L (23-31); Chloride 110 mmol/L (98-107); Estimated GFR 50; Globulin 2.5 g/dL (2.4-3.5); Glucose 147 mg/dL (83-110); Potassium 4.1 mmol/L (3.5-5.1); Protein, Total 5.8 g/dL (5.8-8.1); Sodium 139 mmol/L (136-145); Troponin I 0.062 ng/mL (< 0.028)
[2023-12-16 13:49] LABS: ALV-art Gradient 165.075 mmHg (0-20); Puncture Site Right Radial artery
[2023-12-16 15:58] VITALS: BP 73/44
[2023-12-16 16:13] VITALS: TEMP 97.8
[2023-12-16 16:24] VITALS: BMI 28.5
== END 2023-12-16 19:08 | disposition hospice, inpatient (51) | DRG 64 ==
LOC: ERS 12:39 → CCU 12:55
PROVIDERS: ADMIT Internal Medicine; ATTEND Internal Medicine
PROC: 5A1935Z Respiratory Ventilation, Less than 24 Consecutive Hours (ICD-10-PCS; principal; 2023-12-16)
PROC: 0T9B70Z Drainage of Bladder with Drainage Device, Via Natural or Artificial Opening (ICD-10-PCS; 2023-12-16)
PROC: 0BH17EZ Insertion of Endotracheal Airway into Trachea, Via Natural or Artificial Opening (ICD-10-PCS; 2023-12-16)
PROC: 0D9670Z Drainage of Stomach with Drainage Device, Via Natural or Artificial Opening (ICD-10-PCS; 2023-12-16)
PROC: 3E0G76Z Introduction of Nutritional Substance into Upper GI, Via Natural or Artificial Opening (ICD-10-PCS; 2023-12-16)
PROC: 4A033R1 Measurement of Arterial Saturation, Peripheral, Percutaneous Approach (ICD-10-PCS; 2023-12-16)
DX: I62.9 Nontraumatic intracranial hemorrhage, unspecified (principal); J96.00 Acute respiratory failure, unspecified whether with hypoxia or hypercapnia; N18.30 Chronic kidney disease, stage 3 unspecified; Z51.5 Encounter for palliative care; Z66 Do not resuscitate; I12.9 Hypertensive chronic kidney disease with stage 1 through stage 4 chronic kidney disease, or unspecified chronic kidney disease; E78.5 Hyperlipidemia, unspecified; I48.91 Unspecified atrial fibrillation; N40.0 Benign prostatic hyperplasia without lower urinary tract symptoms; J44.9 Chronic obstructive pulmonary disease, unspecified; Z79.899 Other long term (current) drug therapy; Z95.4 Presence of other heart-valve replacement; Z95.0 Presence of cardiac pacemaker
CPT/HCPCS: 36415; 36600; 43753; 51702; 70450; 70496; 70498; 71045; 80053; 81001; 82805; 83880; 84484; 85025; 85610; 85730; 93005; 94002; 96365; 96366; 96367; J3010; Q9967

== ENCOUNTER 2023-12-16 19:17 | Inpatient (IN) | payer OTHER ==
[2023-12-16] MEDS ORDERED: Lorazepam 2 MG/ML VIAL SLOW IVP PRN (19:32)
[2023-12-16] MEDS ORDERED: Morphine 2 MG/ML VIAL SLOW IVP PRN (19:33)
[2023-12-16] MEDS ORDERED: Glycopyrrolate 0.4 MG/ 2 ML VIAL SLOW IVP PRN (19:34)
[2023-12-16] MEDS: Morphine 4 MG/ML VIAL SLOW IVP SCH (19:44)
[2023-12-16] MEDS ORDERED: Ondansetron PF 4 MG/2 ML Vial IVP PRN (19:45)
[2023-12-16] MEDS ORDERED: Acetaminophen 650 MG Suppository PR PRN (19:45)
[2023-12-16] MEDS ORDERED: Scopolamine 1 mg/72 hour Patch TOP PRN (19:45)
[2023-12-16] MEDS: Lorazepam 2 MG/ML VIAL SLOW IVP SCH (19:48)
== END 2023-12-16 20:06 | disposition expired | DRG 951 ==
LOC: CCU 19:17
PROVIDERS: ADMIT Internal Medicine; ATTEND Internal Medicine
DX: Z51.5 Encounter for palliative care (principal); J96.00 Acute respiratory failure, unspecified whether with hypoxia or hypercapnia; I62.9 Nontraumatic intracranial hemorrhage, unspecified; N18.30 Chronic kidney disease, stage 3 unspecified; I12.9 Hypertensive chronic kidney disease with stage 1 through stage 4 chronic kidney disease, or unspecified chronic kidney disease; Z66 Do not resuscitate; E78.5 Hyperlipidemia, unspecified; I48.91 Unspecified atrial fibrillation; N40.0 Benign prostatic hyperplasia without lower urinary tract symptoms; J44.9 Chronic obstructive pulmonary disease, unspecified; Z79.899 Other long term (current) drug therapy; Z95.4 Presence of other heart-valve replacement
CPT/HCPCS: J2060; J2272